=== PATIENT | male | born 1995 | race Caucasian/White ===

== ENCOUNTER 2019-03-22 12:30 | Emergency (ER) | payer BC ==
--- NOTE | 2019-03-22 12:38 | UC ---
Truncal Trauma HPI - HPI Summary HPI Summary: 23 yo male presents with right rib pain. He tells me that he used to do Judo frequently, but has not in about a year. Last night he was doing Judo for the first time and this morning woke with right rib pain that is worse with movement. He took ibuprofen this morning and feels better. Denies difficulty breathing, SOB, cough, or specific injury. - History Of Current Complaint Stated Complaint: RIB INJURY Time Seen by Provider: 03/22/19 12:38 Hx Obtained From: Patient Onset/Duration: Sudden Onset Severity Initially: Mild Severity Currently: Mild Pain Intensity: 2 Pain Scale Used: 0-10 Numeric - Allergies/Home Medications Allergies/Adverse Reactions: Allergies Allergy/AdvReac Type Severity Reaction Status Date / Time No Known Allergies Allergy Verified 03/22/19 12:45 Home Medications: Home Medications NK [No Home Medications Reported] 03/22/19 [History Confirmed 03/22/19] PMH/Surg Hx/FS Hx/Imm Hx - Additional Past Medical History Additional PMH: None - Surgical History Surgical History: None - Family History Known Family History: Positive: Non-Contributory - Social History Occupation: Student Lives: Dormitory/Roommates Alcohol Use: Occasionally Substance Use Type: None Smoking Status (MU): Never Smoked Tobacco Review of Systems All Other Systems Reviewed And Are Negative: No Constitutional: Positive: Negative Skin: Positive: Negative Respiratory: Positive: Negative Cardiovascular: Positive: Negative Neurovascular: Positive: Negative Musculoskeletal: Positive: Other: - Right rib pain Neurological: Positive: Negative Psychological: Positive: Negative Physical Exam - Summary Physical Exam Summary: GENERAL: NAD. WDWN. No pain distress. SKIN: No rashes, sores, lesions, or open wounds. CHEST: CTAB. No accessory muscle use. Breathing comfortably and in no distress. CV: Pulses intact radial and ulnar. Cap refill <2seconds MSK: RIGHT RIBS: Anterior ~5-6th rib slight TTP. Pain reproduced with torso twisting and movement of upper extremities. NEURO: Alert. Sensations intact hand and all fingers. PSYCH: Age appropriate behavior. Triage Information Reviewed: Yes Vital Signs: Vital Signs: Temp Pulse Resp BP Pulse Ox 98 F 60 16 111/58 100 03/22/19 12:41 03/22/19 12:41 03/22/19 12:41 03/22/19 12:41 03/22/19 12:41 Vital Signs Reviewed: Yes Diagnostics - Radiology Ribs Radiology Interpretation Completed By: Radiologist Summary of Radiographic Findings: IMPRESSION: #. Negative exam. Truncal Trauma Course/Dx - Course Course Of Treatment: XR negative. Suspect muscle strain vs rib contusion. Pt took ibuprofen this morning and feels better - advised to continue this and apply heat to the area. F/u if symptoms do not improve - Differential Dx/Diagnosis Provider Diagnosis: Muscle strain Discharge ED - Sign-Out/Discharge Documenting (check all that apply): Patient Departure All imaging exams completed and their final reports reviewed: Yes - Discharge Plan Condition: Stable Disposition: HOME Patient Education Materials: Muscle Strain (ED), Rib Contusion (ED) Referrals: No Primary Care Phys,NOPCP [Primary Care Provider] - Additional Instructions: If you develop a fever, shortness of breath, chest pain, new or worsening symptoms - please call your PCP or go to the ED immediately. Your X-Rays were normal today and did not show any rib fracture. Please rest, continue taking ibuprofen, and apply heat to the area to decrease pain. - Billing Disposition and Condition Condition: STABLE Disposition: Home
[2019-03-22 12:45] VITALS: BP 111/58
== END 2019-03-22 13:30 | disposition home or self-care (01) ==
LOC: UCEAST 12:30
DX: S29.011A Strain of muscle and tendon of front wall of thorax, initial encounter (principal); X50.9XXA Other and unspecified overexertion or strenuous movements or postures, initial encounter; Y93.75 Activity, martial arts; Y92.9 Unspecified place or not applicable
CPT/HCPCS: 99201; G0463

== ENCOUNTER 2019-05-10 15:50 | Emergency (ER) | payer BC ==
[2019-05-10 16:23] VITALS: BP 135/70
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
== END 2019-05-10 16:47 | disposition home or self-care (01) ==
LOC: UCEAST 15:50
DX: S01.111D Laceration without foreign body of right eyelid and periocular area, subsequent encounter (principal); X58.XXXD Exposure to other specified factors, subsequent encounter